=== PATIENT | male | born 1965 | race Two or more races ===

== ENCOUNTER 2020-10-01 18:18 | Emergency (ER) | payer OTHER ==
[~2020-10-01] VITALS: Ht 188 cm; Wt 113.4 kg
[2020-10-01] MEDS ORDERED: LEVOFLOXACIN500 MG PO (19:42)
[2020-10-01] MEDS ORDERED: NAPROXEN375 MG PO (19:42)
[2020-10-01] MEDS ORDERED: PEPCID AC20 MG PO (19:42)
== END 2020-10-01 20:29 | disposition home or self-care (01) ==
LOC: ER 18:18
DX: S61.432A Puncture wound without foreign body of left hand, initial encounter (principal); X58.XXXA Exposure to other specified factors, initial encounter; Y93.89 Activity, other specified; Y92.098 Other place in other non-institutional residence as the place of occurrence of the external cause